=== PATIENT | female | born 1970 | race African-American/Black ===

== ENCOUNTER 2017-06-25 15:36 | Emergency (ER) | payer MEDICAID ==
[~2017-06-25] VITALS: Ht 157.5 cm; Wt 79.0 kg
[2017-06-25 16:02] VITALS: BP 152/99
== END 2017-06-25 17:30 | disposition home or self-care (01) ==
LOC: ER 15:57
DX: H66.91 Otitis media, unspecified, right ear (principal); J45.909 Unspecified asthma, uncomplicated
CPT/HCPCS: 99283